=== PATIENT | female | born 1970 | race Caucasian/White ===

== ENCOUNTER 2021-11-23 11:20 | Emergency (ER) | payer MEDICARE ==
[~2021-11-23] VITALS: Ht 172.7 cm; Wt 122.5 kg
[2021-11-23 11:58] LABS: BILIRUBIN Negative (Negative); BLOOD Trace-Intact (Negative); CLARITY Cloudy (Clear); COLOR Yellow (Yellow); GLUCOSE Negative (Negative); KETONE Trace (Negative); LEUKO ESTERASE 3+ (Negative); NITRITE Negative (Negative); PH 5.5 (4.5-8.0); SPECIFIC GRAVITY 1.015 (1.001-1.030); UROBILINOGEN 0.2 E.U./dl (0.0-1.0)
[2021-11-23 12:07] LABS: WBC TNTC wbc/hpf (0-5)
[2021-11-23 12:08] LABS: BACTERIA 2+
[2021-11-23] MEDS ORDERED: PYRIDIUM200 M1 PO (12:14)
[2021-11-23] MEDS ORDERED: SEPTDS PO (12:14)
== END 2021-11-23 12:55 | disposition home or self-care (01) ==
LOC: ED 11:20
PROVIDERS: Emergency Medicine
DX: R30.0 Dysuria (principal); R30.9 Painful micturition, unspecified

== ENCOUNTER → 2022-01-20 | Outpatient (CLI) | payer MEDICARE ==
[~2022-01-20] MED LIST: PYRIDIUM200 M1 PO; SEPTDS PO
== END | disposition home or self-care (01) ==
LOC: RAD 13:29
PROVIDERS: ATTEND Family Medicine
DX: D35.02 Benign neoplasm of left adrenal gland (principal); N20.0 Calculus of kidney; M85.88 Other specified disorders of bone density and structure, other site; M81.0 Age-related osteoporosis without current pathological fracture

== ENCOUNTER → 2022-02-13 | Outpatient (CLI) | payer MEDICARE | END | disposition home or self-care (01) | LOC: US 12:58 | PROVIDERS: ATTEND Family Medicine | DX: E03.9 Hypothyroidism, unspecified (principal) ==

== ENCOUNTER → 2022-02-23 | Outpatient (CLI) | payer MEDICARE | END | disposition home or self-care (01) | LOC: US 02-13 13:00 → MAMMO 02-13 13:00 → US 08:30 → MAMMO 09:30 | PROVIDERS: ATTEND Family Medicine | DX: Z12.31 Encounter for screening mammogram for malignant neoplasm of breast (principal) ==

== ENCOUNTER 2022-02-26 18:21 | Emergency (ER) | payer MEDICARE ==
[2022-02-26 19:29] LABS: BASO % 0.5 % (0.0-1.0); EOS % 0.2 % (1.0-4.0); LYMPH # 2.1 10*3/uL (1.3-4.4); LYMPH % 25.9 % (27.0-41.0); MEAN CELL VOLUME 94.7 fl (81.0-99.0); MEAN CORPUSCULAR HGB 31.8 pg (27.0-31.0); MEAN CORPUSCULAR HGB CONC 33.6 g/dl (33.0-37.0); MEAN PLATELET VOLUME 9.7 fl (9.6-12.3); MONO # 0.4 10*3/uL (0.1-1.0); MONO % 5.2 % (3.0-9.0); NEUT # 5.5 10*3/uL (2.3-7.9); PLATELET COUNT AUTOMATED 220 10*3/uL (130-400); RED BLOOD COUNT 5.28 10*6/uL (4.10-5.10); RED CELL DISTRI WIDTH 12.1 % (0-14.5); WHITE BLOOD COUNT 8.1 10*3/uL (4.8-10.8)
[2022-02-26 19:46] LABS: ALKALINE PHOSPHATASE 119 U/L (45-117); BUN 13 mg/dl (7-24); CHLORIDE 108 mmol/L (98-107); CREATININE 0.67 mg/dL (0.55-1.02); LIPASE 104 U/L (73-393); POTASSIUM 3.8 mmol/L (3.5-5.1); SGOT/AST 14 IU/L (3-35); SGPT/ALT 24 U/L (12-78); SODIUM 138 mmol/L (136-145); TOTAL PROTEIN 8.1 gm/dL (6.4-8.2)
[2022-02-26 20:17] LABS: BILIRUBIN Negative (Negative); BLOOD Negative (Negative); CLARITY Clear (Clear); COLOR Yellow (Yellow); GLUCOSE Negative (Negative); KETONE 1+ (Negative); LEUKO ESTERASE Negative (Negative); NITRITE Negative (Negative); SPECIFIC GRAVITY 1.025 (1.001-1.030)
[2022-02-26 20:29] LABS: BACTERIA 1+; EPITHELIAL CELLS 16-20; MUCOUS 1+
[2022-02-26] MEDS ORDERED: PROMETHAZINE25 M1 PO (20:33)
== END 2022-02-26 21:07 | disposition home or self-care (01) ==
LOC: ED 18:21
PROVIDERS: Emergency Medicine
DX: G43.909 Migraine, unspecified, not intractable, without status migrainosus (principal); Z91.030 Bee allergy status; Z88.8 Allergy status to other drugs, medicaments and biological substances

== ENCOUNTER 2022-06-07 10:11 | Emergency (ER) | payer MEDICARE ==
[~2022-06-07] VITALS: Ht 170.1 cm; Wt 121.1 kg
[~2022-06-07 10:11] MED LIST changes: +PROMETHAZINE25 M1 PO
== END 2022-06-07 12:36 | disposition home or self-care (01) ==
LOC: ED 10:11
DX: B34.9 Viral infection, unspecified (principal); Z91.030 Bee allergy status; Z88.8 Allergy status to other drugs, medicaments and biological substances; Z87.891 Personal history of nicotine dependence; Z20.822 Contact with and (suspected) exposure to COVID-19

== ENCOUNTER 2022-08-18 13:18 | Emergency (ER) | payer MEDICARE ==
[2022-08-19] MEDS ORDERED: VIBRAMYCIN100 MG PO (23:45)
[2022-08-19] MEDS ORDERED: PROVENTIL HFA6.7 GM INH (23:45)
== END 2022-08-18 14:20 | disposition left against medical advice (07) ==
LOC: ED 13:18
DX: R51.9 Headache, unspecified (principal); J00 Acute nasopharyngitis [common cold]; Z53.21 Procedure and treatment not carried out due to patient leaving prior to being seen by health care provider

== ENCOUNTER 2022-08-19 17:50 | Emergency (ER) | payer MEDICARE ==
[~2022-08-19] VITALS: Wt 120.2 kg
[2022-08-19 20:20] LABS: HEMATOCRIT 46.6 % (37.0-47.0); MEAN CELL VOLUME 95.1 fl (81.0-99.0); MEAN CORPUSCULAR HGB 31.6 pg (27.0-31.0); MEAN CORPUSCULAR HGB CONC 33.3 g/dl (33.0-37.0); MEAN PLATELET VOLUME 9.2 fl (9.6-12.3); PLATELET COUNT AUTOMATED 217 10*3/uL (130-400); WHITE BLOOD COUNT 11.2 10*3/uL (4.8-10.8)
[2022-08-19 20:23] LABS: MANUAL DIFF REFLEX YES
[2022-08-19 20:33] LABS: ACT PARTIAL THROMBO TIME 26.7 SECONDS (20.0-32.1)
[2022-08-19 20:37] LABS: ALKALINE PHOSPHATASE 102 U/L (46-116); BUN 12 mg/dl (9-23); CHLORIDE 101 mmol/L (98-107); POTASSIUM 3.6 mmol/L (3.4-5.1); SGPT/ALT 15 U/L (10-49); TOTAL PROTEIN 7.7 gm/dL (6.0-8.0)
[2022-08-19 20:58] LABS: ATYPICAL LYMPHS 1 % (0-0); PLATELET SUFFICIENCY NORMAL (NORMAL); TOTAL CELLS COUNTED 100 #CELLS
[2022-08-19] MEDS ORDERED: VIBRAMYCIN100 MG PO (23:45)
[2022-08-19] MEDS ORDERED: PROVENTIL HFA6.7 GM INH (23:45)
== END 2022-08-20 00:06 | disposition home or self-care (01) ==
LOC: ED 17:50
PROVIDERS: Emergency Medicine
DX: J44.1 Chronic obstructive pulmonary disease with (acute) exacerbation (principal); R11.2 Nausea with vomiting, unspecified; Z91.030 Bee allergy status; Z88.8 Allergy status to other drugs, medicaments and biological substances

== ENCOUNTER 2023-05-15 13:16 | Emergency (ER) | payer MEDICARE ==
[~2023-05-15] VITALS: Ht 170.1 cm; Wt 122.0 kg
[~2023-05-15 13:16] MED LIST changes: +PROVENTIL HFA6.7 GM INH; +VIBRAMYCIN100 MG PO
[2023-05-15] MEDS ORDERED: SINGULAIR10 M1 PO (13:49)
[2023-05-15] MEDS ORDERED: BUPROPION HYDR150 M3 PO (13:50)
[2023-05-15] MEDS ORDERED: DULOXETINE HCL60 MG PO (13:51)
[2023-05-15] MEDS ORDERED: DIVALPROEX SOD250 MG PO (13:53)
[2023-05-15] MEDS ORDERED: PROPRANOLOL HCL60 M1 PO (13:53)
[2023-05-15] MEDS ORDERED: LEVOTHYROXINE150 MCG PO (13:54)
[2023-05-15] MEDS ORDERED: LOSARTAN POTAS100 M1 PO (13:54)
[2023-05-15] MEDS ORDERED: RIZATRIPTAN10 MG PO (13:55)
[2023-05-15 14:19] LABS: BASO # 0.1 10*3/uL (0.0-0.1); BASO % 0.6 % (0.0-1.0); EOS # 0.2 10*3/uL (0.0-0.4); EOS % 1.9 % (1.0-4.0); HEMATOCRIT 46.7 % (37.0-47.0); LYMPH # 3.4 10*3/uL (1.3-4.4); LYMPH % 40.2 % (27.0-41.0); MEAN CELL VOLUME 96.9 fl (81.0-99.0); MEAN CORPUSCULAR HGB 31.1 pg (27.0-31.0); MEAN CORPUSCULAR HGB CONC 32.1 g/dl (33.0-37.0); MEAN PLATELET VOLUME 9.7 fl (9.6-12.3); MONO # 0.6 10*3/uL (0.1-1.0); MONO % 6.9 % (3.0-9.0); NEUT # 4.3 10*3/uL (2.3-7.9); PLATELET COUNT AUTOMATED 234 10*3/uL (130-400); RED BLOOD COUNT 4.82 10*6/uL (4.10-5.10); RED CELL DISTRI WIDTH 12.5 % (0-14.5); WHITE BLOOD COUNT 8.5 10*3/uL (4.8-10.8)
[2023-05-15 14:47] LABS: ALKALINE PHOSPHATASE 101 U/L (46-116); BUN 9 mg/dl (9-23); CHLORIDE 107 mmol/L (98-107); LIPASE 31 U/L (12-53); POTASSIUM 3.9 mmol/L (3.4-5.1); SGPT/ALT 9 U/L (5-49); TOTAL PROTEIN 7.5 gm/dL (6.0-8.0)
[2023-05-15 15:51] LABS: BILIRUBIN Negative (Negative); BLOOD 1+ (Negative); CLARITY Clear (Clear); COLOR Yellow (Yellow); GLUCOSE Negative (Negative); KETONE Negative (Negative); LEUKO ESTERASE 2+ (Negative); NITRITE Negative (Negative); PH 7.5 (4.5-8.0); SPECIFIC GRAVITY <= 1.005 (1.001-1.030); UROBILINOGEN 0.2 E.U./dl (0.0-1.0)
[2023-05-15] MEDS ORDERED: TRAMADOL HCL50 MG PO (15:53)
[2023-05-15] MEDS ORDERED: REGLAN10 M1 PO (15:53)
[2023-05-15 16:12] LABS: BACTERIA 1+
== END 2023-05-15 16:05 | disposition home or self-care (01) ==
LOC: ED 13:16
PROVIDERS: Emergency Medicine
DX: R10.31 Right lower quadrant pain (principal); R11.2 Nausea with vomiting, unspecified; I10 Essential (primary) hypertension; G43.909 Migraine, unspecified, not intractable, without status migrainosus; J45.909 Unspecified asthma, uncomplicated; F90.9 Attention-deficit hyperactivity disorder, unspecified type; Z91.030 Bee allergy status; Z88.8 Allergy status to other drugs, medicaments and biological substances; Z87.891 Personal history of nicotine dependence

== ENCOUNTER 2023-05-28 11:26 | Emergency (ER) | payer MEDICARE ==
[~2023-05-28] VITALS: Ht 170.1 cm; Wt 122.0 kg
[~2023-05-28 11:26] MED LIST changes: +BUPROPION HYDR150 M3 PO; +DIVALPROEX SOD250 MG PO; +DULOXETINE HCL60 MG PO; +LEVOTHYROXINE150 MCG PO; +LOSARTAN POTAS100 M1 PO; +PROPRANOLOL HCL60 M1 PO; +REGLAN10 M1 PO; +RIZATRIPTAN10 MG PO; +SINGULAIR10 M1 PO; +TRAMADOL HCL50 MG PO
[2023-05-28 14:06] LABS: BASO % 0.4 % (0.0-1.0); HEMATOCRIT 47.6 % (37.0-47.0); LYMPH # 1.4 10*3/uL (1.3-4.4); LYMPH % 12.4 % (27.0-41.0); MEAN CELL VOLUME 96.7 fl (81.0-99.0); MEAN CORPUSCULAR HGB 31.9 pg (27.0-31.0); MEAN PLATELET VOLUME 9.7 fl (9.6-12.3); MONO # 0.9 10*3/uL (0.1-1.0); MONO % 7.9 % (3.0-9.0); NEUT # 8.6 10*3/uL (2.3-7.9); NEUT % 77.3 % (47.0-73.0); PLATELET COUNT AUTOMATED 184 10*3/uL (130-400); RED BLOOD COUNT 4.92 10*6/uL (4.10-5.10); RED CELL DISTRI WIDTH 12.7 % (0-14.5); WHITE BLOOD COUNT 11.1 10*3/uL (4.8-10.8)
[2023-05-28 14:10] LABS: ACT PARTIAL THROMBO TIME 33.1 SECONDS (20.0-32.1)
[2023-05-28 14:41] LABS: ALKALINE PHOSPHATASE 93 U/L (46-116); BUN 8 mg/dl (9-23); CHLORIDE 101 mmol/L (98-107); LIPASE 30 U/L (12-53); POTASSIUM 3.4 mmol/L (3.4-5.1); SGPT/ALT 15 U/L (5-49)
[2023-05-28] MEDS ORDERED: VIBRA-TAB100 MG PO (15:51)
== END 2023-05-28 16:01 | disposition home or self-care (01) ==
LOC: ED 11:26
PROVIDERS: Emergency Medicine
DX: J18.9 Pneumonia, unspecified organism (principal); R11.0 Nausea; G43.909 Migraine, unspecified, not intractable, without status migrainosus; I10 Essential (primary) hypertension; J45.909 Unspecified asthma, uncomplicated; R10.2 Pelvic and perineal pain; F90.9 Attention-deficit hyperactivity disorder, unspecified type; Z91.030 Bee allergy status; Z88.8 Allergy status to other drugs, medicaments and biological substances; Z20.822 Contact with and (suspected) exposure to COVID-19

== ENCOUNTER 2023-06-04 16:25 | Emergency (ER) | payer MEDICARE ==
[~2023-06-04] VITALS: Ht 172.7 cm; Wt 121.6 kg
[~2023-06-04 16:25] MED LIST changes: +VIBRA-TAB100 MG PO
[2023-06-04 17:35] LABS: BASO % 0.3 % (0.0-1.0); EOS % 0.6 % (1.0-4.0); HEMATOCRIT 47.6 % (37.0-47.0); LYMPH # 1.9 10*3/uL (1.3-4.4); LYMPH % 29.3 % (27.0-41.0); MEAN CELL VOLUME 92.8 fl (81.0-99.0); MEAN CORPUSCULAR HGB 30.8 pg (27.0-31.0); MEAN CORPUSCULAR HGB CONC 33.2 g/dl (33.0-37.0); MEAN PLATELET VOLUME 9.2 fl (9.6-12.3); MONO # 0.7 10*3/uL (0.1-1.0); MONO % 10.3 % (3.0-9.0); NEUT # 3.8 10*3/uL (2.3-7.9); PLATELET COUNT AUTOMATED 319 10*3/uL (130-400); RED BLOOD COUNT 5.13 10*6/uL (4.10-5.10); RED CELL DISTRI WIDTH 12.5 % (0-14.5); WHITE BLOOD COUNT 6.5 10*3/uL (4.8-10.8)
[2023-06-04 18:11] LABS: ALKALINE PHOSPHATASE 100 U/L (46-116); BUN 8 mg/dl (9-23); CHLORIDE 102 mmol/L (98-107); POTASSIUM 3.7 mmol/L (3.4-5.1); SGPT/ALT 10 U/L (5-49); TOTAL PROTEIN 8.1 gm/dL (6.0-8.0)
[2023-06-04] MEDS ORDERED: REGLAN10 M1 PO (18:40)
[2023-06-04] MEDS ORDERED: AMOX-CLAV 875-1 EACH PO (18:40)
== END 2023-06-04 18:42 | disposition home or self-care (01) ==
LOC: ED 16:25
PROVIDERS: Emergency Medicine
DX: R11.2 Nausea with vomiting, unspecified (principal); R53.1 Weakness; I10 Essential (primary) hypertension; G43.909 Migraine, unspecified, not intractable, without status migrainosus; J45.909 Unspecified asthma, uncomplicated; F90.9 Attention-deficit hyperactivity disorder, unspecified type; E78.5 Hyperlipidemia, unspecified; Z91.030 Bee allergy status; Z88.8 Allergy status to other drugs, medicaments and biological substances; Z20.822 Contact with and (suspected) exposure to COVID-19

== ENCOUNTER → 2024-07-12 | Outpatient (CLI) | payer MEDICARE ==
[~2024-07-12] MED LIST changes: +AMOX-CLAV 875-1 EACH PO
[2024-07-12 09:44] LABS: BASO % 0.6 % (0.0-1.0); EOS # 0.1 10*3/uL (0.0-0.4); EOS % 2.2 % (1.0-4.0); HEMATOCRIT 46.6 % (37.0-47.0); MEAN CELL VOLUME 96.1 fl (81.0-99.0); MEAN CORPUSCULAR HGB 31.3 pg (27.0-31.0); MEAN CORPUSCULAR HGB CONC 32.6 g/dl (33.0-37.0); MEAN PLATELET VOLUME 9.4 fl (9.6-12.3); MONO # 0.6 10*3/uL (0.1-1.0); MONO % 8.8 % (3.0-9.0); NEUT # 2.9 10*3/uL (2.3-7.9); NEUT % 45.4 % (47.0-73.0); PLATELET COUNT AUTOMATED 205 10*3/uL (130-400); RED BLOOD COUNT 4.85 10*6/uL (4.10-5.10); RED CELL DISTRI WIDTH 11.9 % (0-14.5); WHITE BLOOD COUNT 6.5 10*3/uL (4.8-10.8)
[2024-07-12 10:24] LABS: ALKALINE PHOSPHATASE 97 U/L (46-116); BUN 11 mg/dl (9-23); CHLORIDE 107 mmol/L (98-107); CHOLESTEROL 161 mg/dL (<200); FREE T4 1.68 ng/dl (0.89-1.76); LDL CHOLESTEROL 95 mg/dL (9-159); SGPT/ALT 10 U/L (5-49); TRIGLYCERIDES 140 mg/dl (<150)
[2024-07-12 10:34] LABS: VITAMIN D, 25-HYDROXY 49.3 ng/mL (30-100)
== END | disposition home or self-care (01) ==
LOC: CARD 00:25
PROVIDERS: ATTEND Internal Medicine
DX: I11.9 Hypertensive heart disease without heart failure (principal); E07.9 Disorder of thyroid, unspecified; E55.9 Vitamin D deficiency, unspecified; R53.83 Other fatigue; R06.02 Shortness of breath; E53.9 Vitamin B deficiency, unspecified; Z12.39 Encounter for other screening for malignant neoplasm of breast

== ENCOUNTER → 2024-07-25 | Outpatient (CLI) | payer MEDICARE ==
[~2024-07-25] MED LIST changes: +DIVALPROEX SOD125 M1 PO; +HYDRALAZINE HYD50 MG PO; +LASIX40 MG PO; +LEVOTHYROXINE150 MC1 PO; +TOPROL XL100 MG PO; +VITAMIN C1000 M5 PO; +VITAMIN D325 MCG PO
== END | disposition home or self-care (01) ==
LOC: US 13:51
PROVIDERS: ATTEND Internal Medicine
DX: M79.89 Other specified soft tissue disorders (principal); R20.0 Anesthesia of skin; R22.43 Localized swelling, mass and lump, lower limb, bilateral; I27.9 Pulmonary heart disease, unspecified

== ENCOUNTER → 2024-07-27 | Outpatient (CLI) | payer MEDICARE | END | disposition home or self-care (01) | LOC: MAMMO 08:17 | PROVIDERS: ATTEND Internal Medicine | DX: Z12.31 Encounter for screening mammogram for malignant neoplasm of breast (principal) ==

== ENCOUNTER → 2024-07-28 | Outpatient (CLI) | payer MEDICARE ==
[~2024-07-28] MED LIST changes: +Regadenoson 0.4 MG/5 ML SYR IV ONE; +Technetium Tc 99M Tetrofosmi 0.23 MG KIT IJ SCH
== END | disposition home or self-care (01) ==
LOC: CARD 01:28
PROVIDERS: ATTEND Internal Medicine
DX: R07.9 Chest pain, unspecified (principal); I10 Essential (primary) hypertension

== ENCOUNTER 2024-10-07 10:29 | Emergency (ER) | payer MEDICARE ==
[~2024-10-07] VITALS: Ht 170.1 cm; Wt 127.0 kg
[~2024-10-07 10:29] MED LIST changes: -Regadenoson 0.4 MG/5 ML SYR IV ONE; -Technetium Tc 99M Tetrofosmi 0.23 MG KIT IJ SCH
[2024-10-07] MEDS ORDERED: METOPROLOL SUCC50 M1 PO (10:41)
[2024-10-07 10:56] LABS: BILIRUBIN Negative (Negative); BLOOD 2+ (Negative); COLOR Yellow (Yellow); GLUCOSE Negative (Negative); KETONE Negative (Negative); LEUKO ESTERASE Negative (Negative); NITRITE Negative (Negative); PH 6.5 (4.5-8.0); UROBILINOGEN 0.2 E.U./dl (0.0-1.0)
[2024-10-07 10:57] LABS: CLARITY Clear (Clear)
[2024-10-07 11:02] LABS: BASO % 0.6 % (0.0-1.0); EOS # 0.1 10*3/uL (0.0-0.4); EOS % 1.3 % (1.0-4.0); HEMATOCRIT 44.2 % (37.0-47.0); MEAN CELL VOLUME 95.9 fl (81.0-99.0); MEAN CORPUSCULAR HGB 31.7 pg (27.0-31.0); MEAN PLATELET VOLUME 9.8 fl (9.6-12.3); MONO # 0.4 10*3/uL (0.1-1.0); MONO % 6.8 % (3.0-9.0); NEUT # 3.3 10*3/uL (2.3-7.9); NEUT % 54.2 % (47.0-73.0); PLATELET COUNT AUTOMATED 216 10*3/uL (130-400); RED BLOOD COUNT 4.61 10*6/uL (4.10-5.10); RED CELL DISTRI WIDTH 12.2 % (0-14.5); WHITE BLOOD COUNT 6.2 10*3/uL (4.8-10.8)
[2024-10-07 11:09] LABS: BACTERIA 1+; RBC 41-50 rbc/hpf (0-2)
[2024-10-07 11:21] LABS: BUN 14 mg/dl (9-23); CHLORIDE 108 mmol/L (98-107); POTASSIUM 3.6 mmol/L (3.4-5.1)
[2024-10-07] MEDS ORDERED: Ondansetron4 MG PO (12:06)
[2024-10-07] MEDS ORDERED: FLOMAX0.4 MG PO (12:06)
[2024-10-07] MEDS ORDERED: KETOROLAC10 MG PO (12:06)
== END 2024-10-07 12:12 | disposition home or self-care (01) ==
LOC: ED 10:29
PROVIDERS: Nurse Practitioner Family
DX: N20.0 Calculus of kidney (principal); Z87.442 Personal history of urinary calculi; Z91.030 Bee allergy status; Z88.1 Allergy status to other antibiotic agents; Z79.899 Other long term (current) drug therapy; Z98.890 Other specified postprocedural states

== ENCOUNTER → 2025-02-12 | Outpatient (CLI) | payer MEDICARE ==
[~2025-02-12] MED LIST changes: +FLOMAX0.4 MG PO; +KETOROLAC10 MG PO; +METOPROLOL SUCC50 M1 PO; +Ondansetron4 MG PO
[2025-02-12 12:53] LABS: FREE T4 1.7 ng/dl (0.89-1.76)
== END | disposition home or self-care (01) ==
LOC: LAB 11:35
PROVIDERS: ATTEND Internal Medicine
DX: E07.9 Disorder of thyroid, unspecified (principal)

== ENCOUNTER 2025-05-25 11:29 | Emergency (ER) | payer MEDICARE ==
[~2025-05-25] VITALS: Ht 172.7 cm; Wt 12.7 kg
[2025-05-25] MEDS ORDERED: Albuterol Sulf/Ipratropium 3 ML VIAL NEB ONE (12:15)
[2025-05-25 12:33] LABS: BILIRUBIN Negative (Negative); BLOOD Negative (Negative); CLARITY Clear (Clear); COLOR Yellow (Yellow); KETONE Negative (Negative); LEUKO ESTERASE Negative (Negative); NITRITE Negative (Negative); PH 5.5 (4.5-8.0); SPECIFIC GRAVITY 1.015 (1.001-1.030); UROBILINOGEN 0.2 E.U./dl (0.0-1.0)
[2025-05-25 12:45] LABS: BACTERIA 1+
[2025-05-25 12:46] LABS: WAXY CAST 0-2; WBC 0-2 wbc/hpf (0-5)
[2025-05-25 13:00] LABS: BUN 10 mg/dl (9-23)
[2025-05-25 13:09] LABS: BASO # 0.0 10*3/uL (0.0-0.1); BASO % 0.5 % (0.0-1.0); EOS # 0.1 10*3/uL (0.0-0.4); EOS % 1.0 % (1.0-4.0); MEAN CELL VOLUME 92.6 fl (81.0-99.0); MEAN CORPUSCULAR HGB 30.5 pg (27.0-31.0); MEAN PLATELET VOLUME 9.1 fl (9.6-12.3); MONO # 0.4 10*3/uL (0.1-1.0); MONO % 6.8 % (3.0-9.0); NEUT # 2.9 10*3/uL (2.3-7.9); NEUT % 46.5 % (47.0-73.0); NUCLEATED RED BLOOD CELL 0.0 % (0.0-0.0); NUCLEATED RED BLOOD CELL 0.0 10*3/uL (0.0-0.0); PLATELET COUNT AUTOMATED 188 10*3/uL (130-400); RED CELL DISTRI WIDTH 12.4 % (0-14.5)
== END 2025-05-25 13:41 | disposition home or self-care (01) ==
LOC: ED 11:29
PROVIDERS: Nurse Practitioner Family
DX: B34.9 Viral infection, unspecified (principal); G43.909 Migraine, unspecified, not intractable, without status migrainosus; I10 Essential (primary) hypertension; J45.909 Unspecified asthma, uncomplicated; F90.9 Attention-deficit hyperactivity disorder, unspecified type; Z20.822 Contact with and (suspected) exposure to COVID-19; Z91.030 Bee allergy status; Z88.8 Allergy status to other drugs, medicaments and biological substances